=== PATIENT | female | born 1975 | race Caucasian/White ===

== ENCOUNTER 2022-06-03 20:52 | Emergency (ER) | payer BC ==
[~2022-06-03] VITALS: Ht 162.6 cm; Wt 81.6 kg
[2022-06-03 20:59] VITALS: BP_SYST 122
--- NOTE | 2022-06-03 21:33 | NUR ---
Pt brought by self, A&Ox4, pt presents to ER with R pinky pain/swelling after baking sheet landed on R hand, cap refill <3, VSS.
--- NOTE | 2022-06-03 21:45 | NUR ---
Patient to ER bed chair florez to gown for evaluation. Side rails up. Report given to Preet SALDANA(reg).
--- NOTE | 2022-06-03 21:46 | NUR ---
ER at bedside examining patient.
--- NOTE | 2022-06-03 21:49 | NUR ---
pt refused pain medicine when offered by .respected rights. per pt, she took some already at home.
[2022-06-03] MEDS ORDERED: NAPR-1172 PO (21:54)
--- NOTE | 2022-06-03 22:00 | NUR ---
Patient given written and verbal discharge instructions and verbalizes understanding. ER MD discussed with patient the results and treatment provided. Patient in stable condition. ID arm band removed. Rx of naproxen given. Patient educated on pain management and to follow up with PMD. Pain Scale . Opportunity for questions provided and answered. Medication side effect fact sheet provided.
== END 2022-06-03 21:59 | disposition home or self-care (01) ==
LOC: SED 20:52
DX: S63.636A Sprain of interphalangeal joint of right little finger, initial encounter (principal); Z88.0 Allergy status to penicillin; Z79.899 Other long term (current) drug therapy; W20.8XXA Other cause of strike by thrown, projected or falling object, initial encounter; Y93.89 Activity, other specified; Y92.89 Other specified places as the place of occurrence of the external cause; Y99.8 Other external cause status
CPT/HCPCS: 99283